=== PATIENT | male | born 1995 | race Caucasian/White ===

== ENCOUNTER 2022-05-17 13:01 | Emergency (ER) | payer MEDICAID, SELFPAY ==
[2022-05-17 13:07] VITALS: BP 134/85; PULSE 51; RESP 18; TEMP 36.6; O2SAT 98
[2022-05-17 13:50] VITALS: RESP 18
[2022-05-17 14:56] LABS: Influenza A PCR Negative (Negative); Influenza B PCR Negative (Negative); RSV PCR Negative (Negative)
[2022-05-17 14:58] LABS: Source Nasopharynx
[2022-05-17 14:59] LABS: COVID-19 PCR Positive (Negative)
--- NOTE | 2022-05-17 15:32 | ED.GENADUL_ITS ---
Discharge Plan Disposition Patient Disposition: Home Condition: Stable Discharge Details Clinical Impression: COVID-19 Primary Care Provider: Becky,Local ED Provider: Renata Garcia Home Meds and New Rx's Prescriptions: No Action No Known Home Meds Discharge Instructions Instructions: Viral Syndrome (ED) Additional Instructions: Take ibuprofen 600 mg every 8 hours with food Take Tylenol 650 mg every 4-6 hours Increase fluid hydration Return earlier should you have new or worsening complaints including shortness of breath, uncontrolled vomiting I am giving her prescription for Zofran, you may take this as needed for nausea and vomiting You should isolate for 6 days after onset of symptoms and wear mask when out in public for remaining 5 days while symptoms persist Stand Alone Forms: Work Release Discharge Data Discharge Date/Time-TO BE ENTERED AT DEPARTURE: 05/17/22 16:17 Medical Decision Making This otherwise healthy 27-year-old male presents with fever, chills, myalgias, sore throat for the past several days Patient appears well, exam consistent with COVID-19, positive PCR Work note supplied Supportive care reviewed Secondary tobacco use, Paxlovid supplied Return precautions discussed and patient expressed understanding Medical Records Medical records reviewed: Yes I reviewed the patient's medical records. Lab Data Lab results reviewed: Yes I reviewed the patient's lab results. Sign Out No HPI General Date/Time Provider Initiated Documentation: 05/17/22 13:20 . HPI Narrative: This 27-year-old male presents with sore throat and myalgias that started 2 days prior to arrival. Unsure regarding fever. Taking ibuprofen and Tylenol at home. Denies any shortness of breath. Has had chills at night reportedly. Denies any history of illicit drug use. Intermittent nausea without vomiting. Related Data Home Medications Medication Instructions Recorded Confirmed Unknown [No Known Home Meds] 05/17/22 05/17/22 Allergies Allergy/AdvReac Type Severity Reaction Status Date / Time No Known Allergies Allergy Unverified 05/17/22 13:09 General Stated Complaint: GenMedical FRANCIA: 4 Review of Systems All systems reviewed & are unremarkable except as noted in HPI and below PFSH All Active Problems (Updated 05/17/22 @ 15:35 by MANDO Grover) COVID-19 (Acute) Social History Smoking/Tobacco Use Status: Never Smoking risk assessment performed?: Yes Alcohol Intake: current Alcohol Intake frequency: holidays/special occasions only Drug use: Daily Substance use type: marijuana Do you feel safe at home: Yes Do you feel safe in your relationship?: Yes Exam Const General: cooperative, comfortable and no acute distress HENMT Head: normal to inspection Other: Uvula midline, oropharynx he did not Eyes Sclera: sclerae normal Resp Effort & Inspection: normal respiratory effort Auscultation: clear to auscultation bilaterally Cardio Rate: regular rate Rhythm: regular rhythm Skin General skin exam: no rashes or lesions noted Neuro General: patient alert and patient oriented x3 Course Vital Signs Vital signs: Vital Signs Temperature 36.6 C 05/17/22 13:07 Pulse 51 L 05/17/22 13:07 Respiratory Rate 18 05/17/22 13:07 Blood Pressure 134/85 05/17/22 13:07 Pulse Oximetry 98 05/17/22 13:07 Temperature 36.6 C 05/17/22 13:07 Temperature Source Temporal Artery Scan 05/17/22 13:07 Pulse 51 L 05/17/22 13:07 Respiratory Rate 18 05/17/22 13:50 Respiratory Effort 05/17/22 13:50 Respiratory Depth Normal 05/17/22 13:50 Respiratory Pattern Normal 05/17/22 13:50 Blood Pressure 134/85 05/17/22 13:07 Blood Pressure Position Sitting 05/17/22 13:07 Pulse Oximetry 98 05/17/22 13:07 Oxygen Delivery Method Room Air 05/17/22 13:07 Oxygen Flow Rate 0 05/17/22 13:07 Lab/Test Results Lab/Test Results: Laboratory Tests Range/Units 05/17/22 13:58 COVID-19 Source Nasopharynx SARS-CoV-2 (PCR) (Negative) Positive A Influenza Type A (PCR) (Negative) Negative Influenza Type B (PCR) (Negative) Negative RSV (PCR) (Negative) Negative
[2022-05-17] MEDS: Acetaminophen 325 MG TAB 650 MG PO (15:49)
[2022-05-17] MEDS: oxyCODONE 5 MG TAB PO (15:51)
[2022-05-17] MEDS: Ondansetron O.D.T. 4 MG TABEF, 3 TABS/BTL PO (16:09)
[2022-05-17 16:16] VITALS: RESP 18; TEMP 37.2
== END 2022-05-17 16:17 | disposition home or self-care (01) ==
PROVIDERS: Emergency Provider Physician Assistant
DX: U07.1 COVID-19 (principal)
CPT/HCPCS: 87637; 99283; 99284

== ENCOUNTER → 2023-12-17 00:24 | Outpatient (CLI) | payer MEDICAID, SELFPAY ==
--- NOTE | 2023-12-17 13:10 | DI.RAD_ITS ---
Exam(s) XR WRIST RT COMPL NAVICULAR EXAM: XR WRIST RT COMPL NAVICULAR CLINICAL HISTORY: RT WRIST PAIN, [id number]. TECHNIQUE: 2D digital imaging was performed. Three views. COMPARISON: No exams were available for comparison FINDINGS: BONES: No acute fracture is present. No bony destructive lesion is seen. JOINTS: The carpal bones are normally aligned. SOFT TISSUE: Normal. IMPRESSION: Unremarkable radiographs of the right wrist. DATA REPOSITORY: RADIATION DOSE DELIVERED:
== END ==
PROVIDERS: Visit Provider Physician Assistant Medical
DX: M25.531 Pain in right wrist (principal)
CPT/HCPCS: 73110